=== PATIENT | female | born 1930 | race Caucasian/White ===

== ENCOUNTER 2018-12-05 13:31 | Emergency (ER) | payer MEDICARE ==
[~2018-12-05] VITALS: Ht 170.2 cm; Wt 77.3 kg
[~2018-12-05 13:31] MED LIST: DOCU-28 PO
--- NOTE | 2018-12-05 15:25 | NUR ---
To er #16 with c/o bilat lower leg swelling, pain, and redness. patient has had similar problems in the past, but the pain and swelling is getting worse.
[2018-12-05 15:59] LABS: BASOPHILS % (AUTO) 0.5 % (0-1); EOSINOPHILS # (AUTO) 0.2 X10'3 (0-0.9); EOSINOPHILS % (AUTO) 2.3 % (0-6); HEMOGLOBIN 12.4 g/dl (12.0-16.0); LYMPHOCYTES # (AUTO) 1.8 X10'3 (1.1-4.8); LYMPHOCYTES % (AUTO) 24.1 % (21-51); MEAN CORPUSCULAR HEMOGLOBIN 29.3 PG (27.0-31.0); MEAN CORPUSCULAR HGB CONC 32.7 g/dL (33.0-36.5); MEAN CORPUSCULAR VOLUME 89.6 FL (78-98); MEAN PLATELET VOLUME 7.1 FL (7.4-10.4); NEUTROPHILS # (AUTO) 4.5 X10'3 (1.8-7.7); NEUTROPHILS % (AUTO) 60.1 % (42-75); PLATELET COUNT 347 X10'3 (140-440); RED BLOOD COUNT 4.24 X10'6 (4.20-5.60); RED CELL DISTRIBUTION WIDTH 13.8 % (11.5-14.5); WHITE BLOOD COUNT 7.4 X10'3 (4.5-11.0)
[2018-12-05 16:02] LABS: PROTHROMBIN TIME 10.3 SECONDS (9.0-12.0)
[2018-12-05 16:11] LABS: ALANINE AMINOTRANSFERASE 23 U/L (12-78); ALBUMIN 3.2 G/DL (3.4-5.0); ALBUMIN/GLOBULIN RATIO 0.8 (1.1-1.5); ALKALINE PHOSPHATASE 99 IU/L (46-116); ANION GAP 4 (8-16); ASPARTATE AMINO TRANSFERASE 23 U/L (10-37); BILIRUBIN,TOTAL 0.3 MG/DL (0.1-1.0); BLOOD UREA NITROGEN 26 MG/DL (7-18); CALCIUM 9.7 MG/DL (8.5-10.1); CHLORIDE 103 MMOL/L (99-107); CREATININE 1.37 MG/DL (0.40-0.90); GLUCOSE 92 MG/DL (70-104); POTASSIUM 4.4 MMOL/L (3.5-5.1); SODIUM 143 MMOL/L (135-145); TOTAL CARBON DIOXIDE 36.4 MMOL/L (24-32); TOTAL PROTEIN 7.1 G/DL (6.4-8.2); eGFR 36 ML/MIN
[2018-12-05 16:47] VITALS: BP 148/68
== END 2018-12-05 16:51 | disposition home or self-care (01) ==
LOC: ER 13:32
DX: I87.2 Venous insufficiency (chronic) (peripheral) (principal); E78.00 Pure hypercholesterolemia, unspecified; G89.29 Other chronic pain; M54.9 Dorsalgia, unspecified
CPT/HCPCS: 36415; 71045; 80053; 83880; 84484; 85025; 85610; 93005; 99284

== ENCOUNTER 2019-02-08 09:02 | Emergency (ER) | payer MEDICARE ==
[~2019-02-08] VITALS: Ht 167.6 cm; Wt 79.2 kg
--- NOTE | 2019-02-08 09:34 | NUR ---
chest x ray in progress.
[2019-02-08] MEDS ORDERED: normal saline 1000ML IV soln IVB ONE (09:35)
[2019-02-08 09:59] LABS: BASOPHILS % (AUTO) 0.6 % (0-1); EOSINOPHILS % (AUTO) 0.4 % (0-6); HEMOGLOBIN 13.7 g/dl (12.0-16.0); LYMPHOCYTES # (AUTO) 1.3 X10'3 (1.1-4.8); LYMPHOCYTES % (AUTO) 16.5 % (21-51); MEAN CORPUSCULAR HEMOGLOBIN 30.3 PG (27.0-31.0); MEAN CORPUSCULAR HGB CONC 34.1 g/dL (33.0-36.5); MEAN CORPUSCULAR VOLUME 88.9 FL (78-98); MEAN PLATELET VOLUME 7.7 FL (7.4-10.4); MONOCYTES # (AUTO) 0.8 X10'3 (0-0.9); MONOCYTES % (AUTO) 10.2 % (2-12); NEUTROPHILS # (AUTO) 5.6 X10'3 (1.8-7.7); NEUTROPHILS % (AUTO) 72.3 % (42-75); PLATELET COUNT 336 X10'3 (140-440); RED BLOOD COUNT 4.51 X10'6 (4.20-5.60); RED CELL DISTRIBUTION WIDTH 13.8 % (11.5-14.5); WHITE BLOOD COUNT 7.7 X10'3 (4.5-11.0)
[2019-02-08 10:12] LABS: ALANINE AMINOTRANSFERASE 25 U/L (12-78); ALBUMIN 3.3 G/DL (3.4-5.0); ALBUMIN/GLOBULIN RATIO 0.8 (1.1-1.5); ALKALINE PHOSPHATASE 113 IU/L (46-116); ANION GAP 5 (8-16); ASPARTATE AMINO TRANSFERASE 22 U/L (10-37); BILIRUBIN,TOTAL 0.4 MG/DL (0.1-1.0); BLOOD UREA NITROGEN 17 MG/DL (7-18); BUN/CREATININE RATIO 13.9 (6.6-38.0); CALCIUM 9.7 MG/DL (8.5-10.1); CHLORIDE 105 MMOL/L (99-107); CREATININE 1.22 MG/DL (0.40-0.90); GLUCOSE 115 MG/DL (70-104); POTASSIUM 3.6 MMOL/L (3.5-5.1); SODIUM 141 MMOL/L (135-145); TOTAL CARBON DIOXIDE 30.9 MMOL/L (24-32); TOTAL PROTEIN 7.6 G/DL (6.4-8.2); eGFR 42 ML/MIN
[2019-02-08 10:39] LABS: PARTIAL THROMBOPLASTIN TIME 31 SECONDS (22-32)
[2019-02-08 10:55] LABS: CLARITY,URINE CLEAR (Clear); COLOR,URINE STRAW (Yellow); GLUCOSE, URINE NEGATIVE (Neg); KETONES,URINE NEGATIVE (Neg); LEUKOCYTE ESTERASE ,URINE TRACE (Neg); NITRITES, URINE NEGATIVE (Neg); OCCULT BLOOD,URINE NEGATIVE (Neg); PH,URINE 7.5 (4.8-8.0); PROTEIN,URINE NEGATIVE (Neg); UROBILINOGEN,URINE 0.2 E.U/dL (0.2-1.0)
[2019-02-08 11:01] LABS: UA COLLECTION TYPE CLN CATCH MIDSTREAM
[2019-02-08 11:02] LABS: BACTERIA,URINE FEW /HPF (Neg); RBC,URINE 0-2 /HPF (0-2); SQUAMOUS EPITHELIAL CELL,UR FEW /LPF (FEW); WBC,URINE 0-4 /HPF (0-4)
[2019-02-08 13:18] VITALS: BP 165/63
== END 2019-02-08 13:19 | disposition home or self-care (01) ==
LOC: ER 09:02
DX: R53.1 Weakness (principal); E78.00 Pure hypercholesterolemia, unspecified; G89.29 Other chronic pain; Z98.890 Other specified postprocedural states
CPT/HCPCS: 36415; 70450; 71045; 73030; 80053; 81001; 83880; 84484; 85025; 85610; 85730; 87088; 93005; 99284; J7030

== ENCOUNTER 2019-07-21 09:02 | Inpatient (IN) | payer MEDICARE ==
[~2019-07-21] VITALS: Ht 167.6 cm; Wt 81.8 kg
--- NOTE | 2019-07-21 09:20 | NUR ---
Pt states she has been putting on extra fentanyl patches for the pain, currently only has one patch to left thigh. Reports pain in lower back that shoots down her legs worse on her right.
[2019-07-21] MEDS ORDERED: normal saline 1000ML IV soln IV ONE (09:40)
[2019-07-21] MEDS ORDERED: fentaNYL/PF 50MCG/1 ML 2ML syringe IV ONE (10:40)
[2019-07-21 10:54] LABS: BASOPHILS # (AUTO) 0.1 X10'3 (0-0.2); BASOPHILS % (AUTO) 0.6 % (0-1); EOSINOPHILS # (AUTO) 0.1 X10'3 (0-0.9); EOSINOPHILS % (AUTO) 1.3 % (0-6); HEMATOCRIT 39.4 % (35.0-45.0); HEMOGLOBIN 13.3 g/dl (12.0-16.0); LYMPHOCYTES # (AUTO) 1.3 X10'3 (1.1-4.8); LYMPHOCYTES % (AUTO) 15.1 % (21-51); MEAN CORPUSCULAR HEMOGLOBIN 30.3 PG (27.0-31.0); MEAN CORPUSCULAR HGB CONC 33.7 g/dL (33.0-36.5); MEAN CORPUSCULAR VOLUME 89.8 FL (78-98); MEAN PLATELET VOLUME 7.3 FL (7.4-10.4); MONOCYTES # (AUTO) 0.9 X10'3 (0-0.9); MONOCYTES % (AUTO) 10.7 % (2-12); NEUTROPHILS # (AUTO) 6.2 X10'3 (1.8-7.7); NEUTROPHILS % (AUTO) 72.3 % (42-75); PLATELET COUNT 323 X10'3 (140-440); RED BLOOD COUNT 4.38 X10'6 (4.20-5.60); RED CELL DISTRIBUTION WIDTH 13.4 % (11.5-14.5); WHITE BLOOD COUNT 8.6 X10'3 (4.5-11.0)
[2019-07-21 11:11] LABS: PARTIAL THROMBOPLASTIN TIME 29 SECONDS (22-32)
[2019-07-21 11:13] LABS: ALANINE AMINOTRANSFERASE 22 U/L (12-78); ALBUMIN/GLOBULIN RATIO 0.8 (1.1-1.5); ALKALINE PHOSPHATASE 106 IU/L (46-116); ANION GAP 8 (8-16); ASPARTATE AMINO TRANSFERASE 38 U/L (10-37); BILIRUBIN,TOTAL 0.6 MG/DL (0.1-1.0); BLOOD UREA NITROGEN 20 MG/DL (7-18); BUN/CREATININE RATIO 17.5 (6.6-38.0); CALCIUM 8.9 MG/DL (8.5-10.1); CHLORIDE 104 MMOL/L (99-107); CREATINE KINASE 363 U/L (26-192); CREATININE 1.14 MG/DL (0.40-0.90); GLUCOSE 105 MG/DL (70-104); MAGNESIUM 1.9 MG/DL (1.5-2.4); POTASSIUM 3.9 MMOL/L (3.5-5.1); SODIUM 142 MMOL/L (135-145); TOTAL CARBON DIOXIDE 29.9 MMOL/L (24-32); TOTAL PROTEIN 6.9 G/DL (6.4-8.2); eGFR 45 ML/MIN
[2019-07-21 11:23] LABS: CLARITY,URINE SLIGHTLY CLOUDY (Clear); COLOR,URINE YELLOW (Yellow); GLUCOSE, URINE NEGATIVE (Neg); KETONES,URINE NEGATIVE (Neg); LEUKOCYTE ESTERASE ,URINE TRACE (Neg); NITRITES, URINE POSITIVE (Neg); OCCULT BLOOD,URINE NEGATIVE (Neg); PROTEIN,URINE NEGATIVE (Neg); UROBILINOGEN,URINE 0.2 E.U/dL (0.2-1.0)
[2019-07-21 11:24] LABS: UA COLLECTION TYPE FOLEY CATH
[2019-07-21 11:47] LABS: BACTERIA,URINE 3+ /HPF (Neg); MUCUS STRANDS FEW /LPF (Neg); RBC,URINE NONE SEEN /HPF (0-2); SQUAMOUS EPITHELIAL CELL,UR FEW /LPF (FEW)
[2019-07-21] MEDS ORDERED: LORA-268 PO (11:48)
[2019-07-21] MEDS ORDERED: GABA-530 PO (11:48)
[2019-07-21] MEDS ORDERED: PARO40TA4 PO (11:48)
[2019-07-21] MEDS ORDERED: PROP10TA10 PO (11:48)
[2019-07-21] MEDS ORDERED: FURO40TA4 PO (11:48)
[2019-07-21] MEDS ORDERED: HYDR-3972 PO (11:48)
[2019-07-21] MEDS ORDERED: FENT-15 TOP (11:48)
[2019-07-21] MEDS ORDERED: metoclopramide 5 mg/ml inj IV PRN (12:05)
[2019-07-21] MEDS ORDERED: potassium CL 10mEq/100ml bag 100 ML IV PRN ×2 (12:05)
[2019-07-21] MEDS ORDERED: magnesium Cl slow-release 64mg tablet PO PRN (12:05)
[2019-07-21] MEDS ORDERED: acetaminophen 650mg rectal suppository RC PRN (12:05)
[2019-07-21] MEDS ORDERED: bisacodyl 10mg suppository rectal RC PRN (12:05)
[2019-07-21] MEDS ORDERED: magnesium 4gm in 100ml NS 100 ML IV PRN (12:05)
[2019-07-21] MEDS ORDERED: diphenhydrAMINE 50 mg/ml inj IV PRN (12:05)
[2019-07-21] MEDS ORDERED: HYDROcodone/acetaminophen 5mg/325mg tablet PO PRN (12:05)
[2019-07-21] MEDS ORDERED: potassium Cl 20 mEq SR tablet PO PRN ×2 (12:05)
[2019-07-21] MEDS ORDERED: magnesium hydroxide 30ml (MOM) UD suspension PO PRN (12:05)
[2019-07-21] MEDS: CefTRIAXone/D5W-Rocephin 1gm 50 ML IV SCH (12:05)
[2019-07-21] MEDS ORDERED: mag hydrox/Alum hydrox/simeth 30ml oral suspension PO PRN (12:05)
[2019-07-21] MEDS ORDERED: magnesium 2GM in 50ml NS 50 ML IV PRN (12:05)
[2019-07-21] MEDS ORDERED: CefTRIAXone/D5W-Rocephin 1gm 50 ML IV ONE (12:05)
[2019-07-21] MEDS ORDERED: acetaminophen 325mg tablet PO PRN ×2 (12:05)
[2019-07-21] MEDS ORDERED: diphenhydrAMINE 25mg capsule PO PRN (12:05)
[2019-07-21] MEDS ORDERED: ondansetron/PF 4mg/2ml inj IV PRN (12:05)
[2019-07-21] MEDS ORDERED: LORazepam 0.5 MG tablet PO PRN (12:10)
[2019-07-21] MEDS ORDERED: FENTANYL TOP SCH (12:10)
[2019-07-21] MEDS: normal saline 1000ml 1,000 ML IV SCH (12:25)
--- NOTE | 2019-07-21 12:31 | NUR ---
Vicente Called from [facility] and just wanted an update on patient. Also to inform regarding patients currently lifestyle. As far as she knows patient has been mismanaging medication administration and frequently runs out of pain medication. She states that they are not a assisted living facility and she when discharged patient needs to be able to take care of self independently.
[2019-07-21 13:30] VITALS: BP 157/66
--- NOTE | 2019-07-21 13:30 | NUR ---
ASSUMED CARE, RECEIVED REPORT FROM MISSY CRUZ. PATIENT A&O X4, REPORTS MODERATE PAIN, WILL PLACE DURAGESIC PATCH.
[2019-07-21] MEDS: gabapentin 100mg capsule PO SCH ×2 (14:26→20:08)
[2019-07-21] MEDS: fentaNYL 100MCG/hour patch.TD72 TD SCH (14:26)
[2019-07-21] MEDS: HYDROcodone/acetaminophen 10/325mg tab PO PRN ×2 (17:12→22:13)
[2019-07-21 18:00] VITALS: BP 160/27
--- NOTE | 2019-07-21 18:15 | NUR ---
Problems reprioritized. Patient report given, questions answered & plan of care reviewed with SUSANNAH CRUZ.
[2019-07-21] MEDS ORDERED: FLU VACC QS 2019-20 (6 MOS UP) 60 MCG/0.5 ML VIAL IMVAC ONE (18:35)
--- NOTE | 2019-07-21 19:00 | NUR ---
Patient in room ORTHO 4009. I have received report from Leon CRUZ and had the opportunity to ask questions and assume patient care.
[2019-07-21] MEDS: docusate sod 100mg capsule PO SCH (20:07)
[2019-07-21] MEDS: propranolol 10mg tablet PO SCH (20:08)
[2019-07-21] MEDS: buPROPion 75mg tablet PO SCH (20:09)
[2019-07-21] MEDS ORDERED: temazepam 15mg capsule PO PRN (21:00)
[2019-07-21 22:00] VITALS: BP 112/50
[2019-07-22] MEDS: normal saline 1000ml 1,000 ML IV SCH ×3 (00:09→16:34)
[2019-07-22 06:00] VITALS: BP 129/65
--- NOTE | 2019-07-22 06:10 | NUR ---
Patient in room ORTHO 4009. I have received report from SUSANNAH CRUZ and had the opportunity to ask questions and assume patient care.
[2019-07-22] MEDS: HYDROcodone/acetaminophen 10/325mg tab PO PRN ×4 (06:23→20:45)
[2019-07-22 06:28] LABS: BASOPHILS % (AUTO) 0.5 % (0-1); EOSINOPHILS # (AUTO) 0.2 X10'3 (0-0.9); EOSINOPHILS % (AUTO) 3.5 % (0-6); HEMATOCRIT 34.1 % (35.0-45.0); HEMOGLOBIN 11.3 g/dl (12.0-16.0); LYMPHOCYTES # (AUTO) 1.9 X10'3 (1.1-4.8); LYMPHOCYTES % (AUTO) 28.1 % (21-51); MEAN CORPUSCULAR HEMOGLOBIN 30.3 PG (27.0-31.0); MEAN CORPUSCULAR HGB CONC 33.2 g/dL (33.0-36.5); MEAN CORPUSCULAR VOLUME 91.2 FL (78-98); MEAN PLATELET VOLUME 7.4 FL (7.4-10.4); MONOCYTES # (AUTO) 0.9 X10'3 (0-0.9); NEUTROPHILS # (AUTO) 3.6 X10'3 (1.8-7.7); NEUTROPHILS % (AUTO) 53.9 % (42-75); PLATELET COUNT 272 X10'3 (140-440); RED BLOOD COUNT 3.74 X10'6 (4.20-5.60); RED CELL DISTRIBUTION WIDTH 13.9 % (11.5-14.5); WHITE BLOOD COUNT 6.6 X10'3 (4.5-11.0)
[2019-07-22 06:33] LABS: ALANINE AMINOTRANSFERASE 17 U/L (12-78); ALBUMIN 2.2 G/DL (3.4-5.0); ALBUMIN/GLOBULIN RATIO 0.7 (1.1-1.5); ALKALINE PHOSPHATASE 79 IU/L (46-116); ANION GAP 5 (8-16); ASPARTATE AMINO TRANSFERASE 34 U/L (10-37); BILIRUBIN,TOTAL 0.5 MG/DL (0.1-1.0); BLOOD UREA NITROGEN 18 MG/DL (7-18); BUN/CREATININE RATIO 17.8 (6.6-38.0); CALCIUM 8.2 MG/DL (8.5-10.1); CHLORIDE 109 MMOL/L (99-107); CREATININE 1.01 MG/DL (0.40-0.90); GLUCOSE 93 MG/DL (70-104); MAGNESIUM 1.9 MG/DL (1.5-2.4); PHOSPHORUS 3.1 MG/DL (2.3-4.5); POTASSIUM 3.6 MMOL/L (3.5-5.1); SODIUM 143 MMOL/L (135-145); TOTAL CARBON DIOXIDE 29.5 MMOL/L (24-32); TOTAL PROTEIN 5.5 G/DL (6.4-8.2); eGFR 52 ML/MIN
[2019-07-22] MEDS: CefTRIAXone/D5W-Rocephin 1gm 50 ML IV SCH (07:30)
[2019-07-22] MEDS: propranolol 10mg tablet PO SCH ×2 (07:30→20:43)
[2019-07-22] MEDS: enoxaparin 40mg/0.4ml syringe SUBCUT SCH (07:30)
[2019-07-22] MEDS: PARoxetine 20mg tablet PO SCH (07:30)
[2019-07-22] MEDS: buPROPion 75mg tablet PO SCH ×3 (07:30→20:43)
[2019-07-22] MEDS: gabapentin 100mg capsule PO SCH ×3 (07:30→20:43)
[2019-07-22] MEDS: docusate sod 100mg capsule PO SCH ×2 (07:31→20:43)
[2019-07-22] MEDS: K and/or MAG REPLACEMENT MC SCH (07:31)
[2019-07-22 10:00] VITALS: BP 109/87
[2019-07-22 18:00] VITALS: BP 129/60
--- NOTE | 2019-07-22 18:18 | NUR ---
Problems reprioritized. Patient report given, questions answered & plan of care reviewed with SUSANNAH CRUZ.
--- NOTE | 2019-07-22 19:00 | NUR ---
Patient in room ORTHO 4009. I have received report from Leon CRUZ and had the opportunity to ask questions and assume patient care.
[2019-07-22 22:00] VITALS: BP 139/56
[2019-07-23] MEDS: HYDROcodone/acetaminophen 10/325mg tab PO PRN (01:44)
[2019-07-23] MEDS: normal saline 1000ml 1,000 ML IV SCH ×2 (01:45→15:38)
[2019-07-23 06:00] VITALS: BP 121/39
[2019-07-23 06:47] LABS: BASOPHILS % (AUTO) 0.5 % (0-1); EOSINOPHILS # (AUTO) 0.3 X10'3 (0-0.9); EOSINOPHILS % (AUTO) 4.8 % (0-6); HEMATOCRIT 31.5 % (35.0-45.0); HEMOGLOBIN 10.7 g/dl (12.0-16.0); LYMPHOCYTES # (AUTO) 1.8 X10'3 (1.1-4.8); LYMPHOCYTES % (AUTO) 32.5 % (21-51); MEAN CORPUSCULAR HEMOGLOBIN 31.2 PG (27.0-31.0); MEAN CORPUSCULAR HGB CONC 33.9 g/dL (33.0-36.5); MEAN PLATELET VOLUME 7.3 FL (7.4-10.4); MONOCYTES # (AUTO) 0.8 X10'3 (0-0.9); MONOCYTES % (AUTO) 14.8 % (2-12); NEUTROPHILS # (AUTO) 2.6 X10'3 (1.8-7.7); NEUTROPHILS % (AUTO) 47.4 % (42-75); PLATELET COUNT 261 X10'3 (140-440); RED BLOOD COUNT 3.43 X10'6 (4.20-5.60); RED CELL DISTRIBUTION WIDTH 14.1 % (11.5-14.5); WHITE BLOOD COUNT 5.5 X10'3 (4.5-11.0)
[2019-07-23 06:53] LABS: ALANINE AMINOTRANSFERASE 18 U/L (12-78); ALBUMIN 2.1 G/DL (3.4-5.0); ALBUMIN/GLOBULIN RATIO 0.7 (1.1-1.5); ALKALINE PHOSPHATASE 77 IU/L (46-116); ANION GAP 6 (8-16); ASPARTATE AMINO TRANSFERASE 33 U/L (10-37); BILIRUBIN,TOTAL 0.3 MG/DL (0.1-1.0); BLOOD UREA NITROGEN 18 MG/DL (7-18); BUN/CREATININE RATIO 15.5 (6.6-38.0); CALCIUM 8.3 MG/DL (8.5-10.1); CHLORIDE 111 MMOL/L (99-107); CREATININE 1.16 MG/DL (0.40-0.90); GLUCOSE 89 MG/DL (70-104); MAGNESIUM 1.9 MG/DL (1.5-2.4); PHOSPHORUS 3.5 MG/DL (2.3-4.5); POTASSIUM 3.9 MMOL/L (3.5-5.1); SODIUM 145 MMOL/L (135-145); TOTAL CARBON DIOXIDE 28.4 MMOL/L (24-32); TOTAL PROTEIN 5.3 G/DL (6.4-8.2); eGFR 44 ML/MIN
[2019-07-23] MEDS: CefTRIAXone/D5W-Rocephin 1gm 50 ML IV SCH (07:50)
[2019-07-23] MEDS: gabapentin 100mg capsule PO SCH ×3 (07:50→20:33)
[2019-07-23] MEDS: propranolol 10mg tablet PO SCH ×2 (07:50→20:33)
[2019-07-23] MEDS: buPROPion 75mg tablet PO SCH ×3 (07:50→20:32)
[2019-07-23] MEDS: docusate sod 100mg capsule PO SCH ×2 (07:50→20:33)
[2019-07-23] MEDS: enoxaparin 40mg/0.4ml syringe SUBCUT SCH (07:51)
[2019-07-23] MEDS: PARoxetine 20mg tablet PO SCH (07:51)
[2019-07-23] MEDS: K and/or MAG REPLACEMENT MC SCH (08:00)
[2019-07-23 10:00] VITALS: BP 107/48
--- NOTE | 2019-07-23 18:00 | NUR ---
Patient in room ORTHO 4009. I have received report from Lyn CRUZ and had the opportunity to ask questions and assume patient care.
[2019-07-23 19:00] VITALS: BP 145/58
[2019-07-23 22:00] VITALS: BP 170/84
[2019-07-24] MEDS: normal saline 1000ml 1,000 ML IV SCH (00:34)
[2019-07-24] MEDS: HYDROcodone/acetaminophen 10/325mg tab PO PRN (05:29)
[2019-07-24 06:12] LABS: BASOPHILS % (AUTO) 0.5 % (0-1); EOSINOPHILS # (AUTO) 0.3 X10'3 (0-0.9); EOSINOPHILS % (AUTO) 4.2 % (0-6); HEMATOCRIT 33.2 % (35.0-45.0); LYMPHOCYTES % (AUTO) 29.3 % (21-51); MEAN CORPUSCULAR HEMOGLOBIN 30.6 PG (27.0-31.0); MEAN CORPUSCULAR HGB CONC 33.1 g/dL (33.0-36.5); MEAN CORPUSCULAR VOLUME 92.3 FL (78-98); MEAN PLATELET VOLUME 7.3 FL (7.4-10.4); MONOCYTES # (AUTO) 0.8 X10'3 (0-0.9); NEUTROPHILS # (AUTO) 3.6 X10'3 (1.8-7.7); PLATELET COUNT 258 X10'3 (140-440); RED BLOOD COUNT 3.59 X10'6 (4.20-5.60); RED CELL DISTRIBUTION WIDTH 14.1 % (11.5-14.5); WHITE BLOOD COUNT 6.7 X10'3 (4.5-11.0)
--- NOTE | 2019-07-24 06:12 | NUR ---
Patient in room ORTHO 4009. I have received report from FITO/BENSON CRUZ and had the opportunity to ask questions and assume patient care.
--- NOTE | 2019-07-24 06:15 | NUR ---
Problems reprioritized. Patient report given, questions answered & plan of care reviewed with Lyn CRUZ.
[2019-07-24 06:39] VITALS: BP 152/57
[2019-07-24 06:55] LABS: ALANINE AMINOTRANSFERASE 38 U/L (12-78); ALBUMIN 2.3 G/DL (3.4-5.0); ALBUMIN/GLOBULIN RATIO 0.7 (1.1-1.5); ALKALINE PHOSPHATASE 89 IU/L (46-116); ANION GAP 6 (8-16); ASPARTATE AMINO TRANSFERASE 28 U/L (10-37); BILIRUBIN,TOTAL 0.3 MG/DL (0.1-1.0); BLOOD UREA NITROGEN 15 MG/DL (7-18); BUN/CREATININE RATIO 14.7 (6.6-38.0); CALCIUM 8.3 MG/DL (8.5-10.1); CHLORIDE 111 MMOL/L (99-107); CREATININE 1.02 MG/DL (0.40-0.90); GLUCOSE 87 MG/DL (70-104); MAGNESIUM 1.9 MG/DL (1.5-2.4); PHOSPHORUS 3.5 MG/DL (2.3-4.5); POTASSIUM 3.7 MMOL/L (3.5-5.1); SODIUM 144 MMOL/L (135-145); TOTAL CARBON DIOXIDE 26.7 MMOL/L (24-32); TOTAL PROTEIN 5.7 G/DL (6.4-8.2); eGFR 51 ML/MIN
[2019-07-24 06:58] LABS: % IRON SATURATION 31 % (11-46); IRON 65 UG/DL (49-151); TOTAL IRON BINDING CAPACITY 213 UG/DL (259-388)
[2019-07-24] MEDS: CefTRIAXone/D5W-Rocephin 1gm 50 ML IV SCH (07:37)
[2019-07-24] MEDS: gabapentin 100mg capsule PO SCH (07:41)
[2019-07-24] MEDS: docusate sod 100mg capsule PO SCH (07:41)
[2019-07-24] MEDS: PARoxetine 20mg tablet PO SCH (07:41)
[2019-07-24] MEDS: buPROPion 75mg tablet PO SCH (07:41)
[2019-07-24] MEDS: propranolol 10mg tablet PO SCH (07:41)
[2019-07-24] MEDS: enoxaparin 40mg/0.4ml syringe SUBCUT SCH (07:42)
[2019-07-24] MEDS: K and/or MAG REPLACEMENT MC SCH (08:00)
[2019-07-24] MEDS: fentaNYL 100MCG/hour patch.TD72 TD SCH (15:00)
--- NOTE | 2019-07-24 15:07 | NUR ---
Fentanyl patch 100mcg removed from patients right shoulder, wasted with Dana Keen RN & placed patch & packaging in black waste. new patch applied to left shoulder
--- NOTE | 2019-07-24 15:10 | NUR ---
Fentanyl patch 100mcg removed from patients right shoulder, wasted with SWETHA CRUZ & placed patch & packaging in black waste.
[2019-07-24] MEDS ORDERED: CEPH250T PO (17:28)
== END 2019-07-24 14:45 | DRG 558 ==
LOC: ER 09:02 → ED HOLD 12:17 → ORTHO 4S 13:39
PROVIDERS: ADMIT Family Medicine; ATTEND Family Medicine
DX: M62.82 Rhabdomyolysis (principal); N39.0 Urinary tract infection, site not specified; M54.9 Dorsalgia, unspecified; B96.20 Unspecified Escherichia coli [E. coli] as the cause of diseases classified elsewhere; E78.00 Pure hypercholesterolemia, unspecified; E86.0 Dehydration; Z66 Do not resuscitate; D63.8 Anemia in other chronic diseases classified elsewhere; Z60.2 Problems related to living alone; F32.9 Major depressive disorder, single episode, unspecified; F41.9 Anxiety disorder, unspecified; I50.9 Heart failure, unspecified; N18.9 Chronic kidney disease, unspecified; G89.29 Other chronic pain; R00.1 Bradycardia, unspecified; R74.0 Nonspecific elevation of levels of transaminase and lactic acid dehydrogenase [LDH]; Z79.899 Other long term (current) drug therapy
CPT/HCPCS: 36415; 70450; 71045; 72125; 72128; 72131; 80053; 81001; 82550; 83540; 83550; 83605; 83735; 84100; 84145; 85025; 85610; 85730; 87040; 87077; 87081; 87088; 87186; 96374; 97110; 97116; 97161; 97530; 99285; G0378; J0696; J1650; J3010; J7030; Q2037

== ENCOUNTER 2020-07-09 10:48 | Emergency (ER) | payer MEDICARE ==
[~2020-07-09] VITALS: Ht 175.3 cm; Wt 80.0 kg
[~2020-07-09 10:48] MED LIST changes: +CEPH250T PO; -DOCU-28 PO; +FENT-15 TOP; +GABA-530 PO; +HYDR-3972 PO; +LORA-268 PO; +PARO40TA4 PO; +PROP10TA10 PO
[2020-07-09] MEDS ORDERED: normal saline 1000ml 1,000 ML IV ONE (11:20)
[2020-07-09] MEDS ORDERED: acetaminophen 325mg tablet PO ONE (11:20)
[2020-07-09 11:50] LABS: BASOPHILS % (AUTO) 0.3 % (0-1); EOSINOPHILS % (AUTO) 0.1 % (0-6); HEMATOCRIT 39.7 % (35.0-45.0); HEMOGLOBIN 13.3 g/dl (12.0-16.0); LYMPHOCYTES # (AUTO) 1.2 X10'3 (1.1-4.8); LYMPHOCYTES % (AUTO) 11.1 % (21-51); MEAN CORPUSCULAR HEMOGLOBIN 30.8 PG (27.0-31.0); MEAN CORPUSCULAR HGB CONC 33.5 g/dL (33.0-36.5); MEAN CORPUSCULAR VOLUME 92.1 FL (78-98); MEAN PLATELET VOLUME 7.4 FL (7.4-10.4); MONOCYTES # (AUTO) 1.2 X10'3 (0-0.9); MONOCYTES % (AUTO) 11.6 % (2-12); NEUTROPHILS # (AUTO) 8.2 X10'3 (1.8-7.7); NEUTROPHILS % (AUTO) 76.9 % (42-75); PLATELET COUNT 294 X10'3 (140-440); RED BLOOD COUNT 4.31 X10'6 (4.20-5.60); WHITE BLOOD COUNT 10.7 X10'3 (4.5-11.0)
[2020-07-09 12:05] LABS: ALANINE AMINOTRANSFERASE 42 U/L (12-78); ALBUMIN 3.4 G/DL (3.4-5.0); ALBUMIN/GLOBULIN RATIO 0.8 (1.1-1.5); ALKALINE PHOSPHATASE 130 IU/L (46-116); ANION GAP 13 (8-16); ASPARTATE AMINO TRANSFERASE 130 U/L (10-37); BILIRUBIN,TOTAL 0.8 MG/DL (0.1-1.0); BLOOD UREA NITROGEN 48 MG/DL (7-18); BUN/CREATININE RATIO 27.7 (6.6-38.0); CALCIUM 9.3 MG/DL (8.5-10.1); CHLORIDE 101 MMOL/L (99-107); CREATININE 1.73 MG/DL (0.40-0.90); GLUCOSE 114 MG/DL (70-104); POTASSIUM 4.3 MMOL/L (3.5-5.1); SODIUM 140 MMOL/L (135-145); TOTAL CARBON DIOXIDE 25.7 MMOL/L (24-32); TOTAL PROTEIN 7.6 G/DL (6.4-8.2); eGFR 28 ML/MIN
[2020-07-09 12:08] LABS: TROPONIN I < 0.04 NG/ML (0.0-0.05)
[2020-07-09] MEDS ORDERED: normal saline 1000ML IV soln IVB ONE (12:40)
[2020-07-09 15:32] LABS: CLARITY,URINE SLIGHTLY CLOUDY (Clear); COLOR,URINE YELLOW (Yellow); GLUCOSE, URINE NEGATIVE (Neg); KETONES,URINE TRACE mg/dl (Neg); LEUKOCYTE ESTERASE ,URINE NEGATIVE (Neg); NITRITES, URINE NEGATIVE (Neg); OCCULT BLOOD,URINE SMALL (Neg); PROTEIN,URINE NEGATIVE (Neg); UROBILINOGEN,URINE 0.2 E.U/dL (0.2-1.0)
[2020-07-09 15:33] LABS: UA COLLECTION TYPE STRAIGHT CATH
[2020-07-09 15:39] LABS: HYALINE CASTS 0-3 /LPF (NEGATIVE); MUCUS STRANDS NONE SEEN /LPF (Neg); SQUAMOUS EPITHELIAL CELL,UR FEW /LPF (FEW)
[2020-07-09 15:41] LABS: RBC,URINE 0-2 /HPF (0-2); WBC,URINE 0-4 /HPF (0-4)
[2020-07-09 15:42] LABS: AMORPHOUS URATES 2+; BACTERIA,URINE NONE SEEN /HPF (Neg)
--- NOTE | 2020-07-09 16:00 | NUR ---
social professionals called the patient's friend who helps take her to appt and buys her food. the friend states the patient is able to care for herself and if not the patient has the means to hire a caregiver
[2020-07-09 16:21] VITALS: BP 106/88
--- NOTE | 2020-07-09 16:22 | NUR ---
PT'S RIDE IS WAITING FOR PT NOW IN PARKING LOT. GET PT READY FOR TRANSPORT. BRING COMMODE TO ROOM FOR PT TO VOID. DC IV FROM LEFT AC. PT GIVEN GREEN ROBE AND BAG WITH HER MISHRA, PHONE AND PRACTICE SPECIALIST. PT TAKEN OUT TO PARKING LOT VIA W/C BY [employer].
== END 2020-07-09 16:26 | disposition home or self-care (01) ==
LOC: ER 10:48
DX: E86.0 Dehydration (principal); R53.1 Weakness; W01.198A Fall on same level from slipping, tripping and stumbling with subsequent striking against other object, initial encounter; Y92.098 Other place in other non-institutional residence as the place of occurrence of the external cause; Y93.89 Activity, other specified; Z91.81 History of falling; G89.29 Other chronic pain; E78.00 Pure hypercholesterolemia, unspecified; Z98.890 Other specified postprocedural states; Z60.2 Problems related to living alone; Z79.2 Long term (current) use of antibiotics; Z79.899 Other long term (current) drug therapy
CPT/HCPCS: 36415; 70450; 71045; 72125; 80053; 81001; 84484; 85025; 93005; 96360; 96361; 99285; J7030